=== PATIENT | female | born 1995 | race African-American/Black ===

== ENCOUNTER 2025-02-23 18:15 | Emergency (ER) | payer SELFPAY ==
[2025-02-23 18:25] VITALS: BP 148/90; PULSE 107; RESP 18; TEMP 36.4; O2SAT 100
--- NOTE | 2025-02-23 18:34 | ED.NECK ---
HPI - Neck Pain/Injury General Chief Complaint: Recheck/Abnormal Lab/Rx Stated Complaint: swollen tongue Time Seen by Provider: 02/23/25 18:25 History of Present Illness HPI Narrative: 29-year-old female presenting to the emergency room with chief complaint of swollen tonsils and some pain with swallowing. Intermittent symptoms for last few months and was previously treated with a course of amoxicillin several months ago. She states she was told to follow-up with an ENT doctor but mistakenly made the appointment for wrong date and has not been able to see them yet. Next appointment is March 26. She states for last 3 days she has been having worsening swallowing and scratchy sensations when swallowing associated with throat closing sensations but no difficulty in breathing or respiratory distress. Patient denies any trauma or injury, no fever, chills, muffled voice, pain with neck manipulation or movement. History of tonsillitis previously but no history of tonsil or adenoid surgery in the past. Related Data Allergies Allergy/AdvReac Type Severity Reaction Status Date / Time No Known Allergies Allergy Verified 02/23/25 18:29 Review of Systems Review of Systems: As reviewed above in HPI Exam Narrative: GENERAL: [Well-appearing, well-nourished, and in no acute distress.] HEAD: [Normocephalic, atraumatic.] EYES: [PERRLA and EOMI.] ENT: Bilateral tonsils are inflamed with the left side being slightly worse than the right but uvula is straight midline without any posterior or pharyngeal exudates or redness. Tonsils are widely spaced without any signs of airway compromise and she has good phonation without any signs of trismus or any secretion pooling. NECK: Supple. CHEST: [Clear to auscultation. No respiratory distress.] HEART: [Regular rate and rhythm]. No murmur heard. [Normal peripheral pulses.] ABDOMEN: [Soft, nondistended], [nontender], [No rigidity or guarding] EXTREMITIES: Normal range of motion. [No edema.] SKIN: Warm, dry, no rash. NEURO: [No focal deficits]. Alert and oriented [x3.] PSYCH: [Normal mood and affect.] Course Vital Signs Vital signs: Vital Signs Temperature 36.4 C 02/23/25 18:25 Pulse Rate 107 H 02/23/25 18:25 Respiratory Rate 18 02/23/25 18:25 Blood Pressure 148/90 H 02/23/25 18:25 Pulse Oximetry 100 02/23/25 18:25 Temperature 36.4 C 02/23/25 18:25 Pulse Rate 107 H 02/23/25 18:25 Respiratory Rate 18 02/23/25 18:25 Blood Pressure 148/90 H 02/23/25 18:25 Pulse Oximetry 100 02/23/25 18:25 MDM - Neck Pain/Injury MDM Narrative Medical decision making narrative: 29-year-old female presenting to the emergency department for tonsillitis type symptoms. Similar symptoms happened or several months ago and she completed a course of amoxicillin which did help her symptoms but they did recur. Not been able to follow-up with an adult ENT doctor yet for evaluation. Examination reveals bilateral tonsils are inflamed with the left side being slightly worse than the right but uvula is straight midline without any posterior or pharyngeal exudates or redness. Tonsils are widely spaced without any signs of airway compromise and she has good phonation without any signs of trismus or any secretion pooling. Patient is afebrile here, mildly tachycardic but not any acute physical or respiratory distress. IV was established and basic laboratory studies including CBC and CMP were obtained while she was given anti-inflammatory and steroid medications for tonsillitis and pharyngitis type symptoms. She was given IV Decadron and Toradol as well as a fluid bolus and started on clindamycin which will transition to oral upon discharge. Patient has a ENT appointment in 30 days but we will refer you to our local specialists if they can see her sooner. Patient was comfortable with this plan. Laboratory studies showed a slight leukocytosis of 12.9 likely secondary to her tonsillitis infection, hemoglobin 11.9 with no baseline to compare to. Normal platelet count. Electrolytes are unremarkable. Normal renal and hepatic function panel with normal glucose. Patient did require additional morphine for pain control which improved. Given her unremarkable workup she can be safely discharged home with oral clindamycin and follow-up with an early childhood education instructor. She will be sent home with prednisone for the next several days as well. Medical Records Attestation: I reviewed the patient's medical records. Lab Data Attestation: I reviewed the patient's lab results. 02/23/25 19:03 02/23/25 19:03 Labs: Lab Results 02/23/25 Range/Units 19:03 WBC 12.9 H (4.5-10.0) K/mm3 RBC 4.19 L (4.2-5.4) M/mm3 Hgb 11.9 L (12.0-15.0) g/dL Hct 36.6 L (37.0-47.0) % MCV 87.4 (80-100) fl MCH 28.4 (26-34) pg MCHC 32.5 (32-36) g/dl RDW 13.7 (11.5-14.5) % Plt Count 303 (150-375) k/mm3 MPV 9.9 (7.4-10.4) fl Immature Gran % (Auto) 0.5 (0-0.5) % Neut % (Auto) 70.9 (45.5-73.1) % Lymph % (Auto) 22.5 (18.3-44.2) % [place] % (Auto) 5.6 (2.6-8.5) % Eos % (Auto) 0.3 (0-4.4) % Baso % (Auto) 0.2 (0.2-1.2) % Lymph # (Auto) 2.91 (0.9-3.2) K/mm3 [place] # (Auto) 0.7 H (0.1-0.6) K/mm3 Eos # (Auto) 0.0 (0-0.3) K/mm3 Baso # (Auto) 0.0 (0.0-0.1) K/mm3 Abs Immat Gran (auto) 0.06 H (0.00-0.031) K/mm3 Absolute Neuts (auto) 9.2 H (1.3-6.7) K/mm3 Absolute Nucleated RBC 0.000 (0.0-0.012) K/mm3 Nucleated RBC % 0.0 (0.0-0.2) % Sodium 137 (137-145) mmol/L Potassium 3.6 (3.4-5.0) mmol/L Chloride 100 (98-107) mmol/L Carbon Dioxide 27 (22-30) mmol/L Anion Gap 10 (4-12) mmol/L BUN 13 (7-17) mg/dL Creatinine 0.82 (0.7-1.0) mg/dL Estim Creat Clear Calc 94 ml/min Estimated GFR > 60 (59 - ) Glucose 106 (65-110) mg/dL Calcium 9.7 (8.4-10.2) mg/dL Total Bilirubin 0.4 (0.2-1.3) mg/dL AST 29 (14-36) U/L ALT 14 (6-35) U/L Alkaline Phosphatase 100 (38-126) U/L Total Protein 9.4 H (6.3-8.2) g/dL Albumin 4.3 (3.5-5.1) g/dL Discharge Plan Discharge Clinical Impression: Acute bacterial tonsillitis Patient Disposition: Home Condition: Stable Instructions: Antibiotic Form, Tonsillitis (ED) Additional Instructions: Follow-up with the early childhood education instructor regarding her tonsillar inflammation and infection and we will treat with antibiotics and steroids in the meantime. Return with any emergent concerns. Patient Language: Portuguese Prescriptions: New clindamycin HCl [Cleocin HCl] 300 mg capsule 300 mg PO TID 10 Days Qty: 30 0RF ibuprofen 800 mg tablet 800 mg PO TID PRN (Reason: pain) Qty: 30 0RF methylprednisolone [Medrol (Nikolai)] 4 mg tablets,dose pack See Rx Instructions .ROUTE .COMPLEX Qty: 21 0RF Rx Instructions: orally per package directions Follow-up/Referrals: Dyllan Cope MD [Physician] - 1 Week (Tonsillitis) PHYSICIAN,CREDIT CHARGE AUTHORIZER [Primary Care Provider] - Time of Disposition: 19:57
[2025-02-23] MEDS: dexAMETHasone SOD PHOS INJ 10 MG/ML 1 ML VIAL IV PUSH (18:59)
[2025-02-23] MEDS: KETOROLAC 15 MG/ML VIAL (*BKC) IV PUSH (18:59)
[2025-02-23] MEDS: LACTATED RINGERS 1,000 ML 999 ML IV CONT (19:00)
[2025-02-23] MEDS: CLINDAMYCIN 600 MG/D5W 50 ML 600 MG/50 ML PIGGYBACK 100 MG IVPB (19:00)
[2025-02-23 19:09] LABS: Basophils Percent Auto 0.2 % (0.2-1.2); Eosinophils Percent Auto 0.3 % (0-4.4); Hematocrit 36.6 % (37.0-47.0); Hemoglobin 11.9 g/dL (12.0-15.0); Immature Granulocyte Absolute 0.06 K/mm3 (0.00-0.031); Immature Granulocyte Percent A 0.5 % (0-0.5); Lymphocytes Absolute Auto 2.91 K/mm3 (0.9-3.2); Lymphocytes Percent Auto 22.5 % (18.3-44.2); Mean Corpuscular HGB Conc 32.5 g/dl (32-36); Mean Corpuscular Hemoglobin 28.4 pg (26-34); Mean Corpuscular Volume 87.4 fl (80-100); Mean Platelet Volume 9.9 fl (7.4-10.4); Monocytes Absolute Auto 0.7 K/mm3 (0.1-0.6); Monocytes Percent Auto 5.6 % (2.6-8.5); Neutrophils Absolute Auto 9.2 K/mm3 (1.3-6.7); Neutrophils Percent Auto 70.9 % (45.5-73.1); Platelet Count Result 303 k/mm3 (150-375); Red Blood Count 4.19 M/mm3 (4.2-5.4); Red Cell Distribution Width 13.7 % (11.5-14.5); White Blood Count 12.9 K/mm3 (4.5-10.0)
--- NOTE | 2025-02-23 19:12 | PC.NURSE ---
Report received from CHACE Bardales. Assumed care of patient at this time.
[2025-02-23 19:31] VITALS: BP 127/79; O2SAT 100
[2025-02-23 19:32] LABS: Alanine Aminotransferase 14 U/L (6-35); Albumin Level 4.3 g/dL (3.5-5.1); Alkaline Phosphatase 100 U/L (38-126); Anion Gap 10 mmol/L (4-12); Aspartate Amino Transferase 29 U/L (14-36); Bilirubin,Total 0.4 mg/dL (0.2-1.3); Blood Urea Nitrogen 13 mg/dL (7-17); Calcium 9.7 mg/dL (8.4-10.2); Carbon Dioxide 27 mmol/L (22-30); Chloride 100 mmol/L (98-107); Estimated CRCL calculation 94 ml/min; Estimated Glomerular Filt Rate > 60; Glucose 106 mg/dL (65-110); Potassium 3.6 mmol/L (3.4-5.0); Sodium 137 mmol/L (137-145); Total Protein 9.4 g/dL (6.3-8.2)
[2025-02-23 20:01] VITALS: BP 138/92; O2SAT 100
[2025-02-23] MEDS: MORPHINE SULFATE (*CRX) 4 MG/ML INJ IV PUSH (20:07)
[2025-02-23 20:48] VITALS: BP 135/99; PULSE 80; RESP 16; TEMP 36.5; O2SAT 100
== END 2025-02-23 20:40 | disposition home or self-care (01) ==
PROVIDERS: Emergency Provider Student in an Organized Health Care Education/Training Program
DX: J03.80 Acute tonsillitis due to other specified organisms (principal); B96.89 Other specified bacterial agents as the cause of diseases classified elsewhere
CPT/HCPCS: 36415; 80053; 85025; 96365; 96375; 99284; J1100; J1885; J2270; J7120

== ENCOUNTER 2025-02-24 04:58 | Emergency (ER) | payer SELFPAY ==
[2025-02-24] VITALS (13 sets, daily range): BP systolic 116–155; BP diastolic 85–95; PULSE 58–127; RESP 16–22; TEMP 36.6–36.9; O2SAT 98–100
--- NOTE | ~2025-02-24 | CT_ITS ---
CT scan of the Neck Technique: 2.5 mm axial scans were obtained through the neck after intravenous administration of 75 c c Omnipaque 350. Coronal and sagittal reconstructions of the neck were obtained. Dose reduction techn ique was used on this scan by utilizing automated exposure control and iterative reconstruction techn ique. The dose-length product (DLP) was 476.18 mGy-cm. Clinical History: Tonsillar swelling Findings: There is no evidence of any significant cervical lymphadenopathy. Several small, nonenlarged jugulo- digastric and posterior cervical lymph nodes are noted bilaterally. Parapharyngeal spaces appear norm al bilaterally. The parotid and submandibular glands appear normal. Questionable minimal prominence o f the palatine tonsils bilaterally. The pharyngeal mucosal spaces appear normal. No soft tissue masses are seen in the neck. The thyroid gland appears normal. Images of the lung apices reveal no abnormalities. Impression: Questionable minimal prominence of the palatine tonsils. Correlate for tonsillitis. No phlegmonous ch [place] or abscess seen. No infiltration parapharyngeal fat. Reviewed, dictated and finalized at [facility]. Impression: Questionable minimal prominence of the palatine tonsils. Correlate for tonsilli tis. No phlegmonous change or abscess seen. No infiltration parapharyngeal fat.
--- NOTE | 2025-02-24 05:33 | ED_ITS ---
HPI - Dental/Oral General Chief complaint: Dental/Oral <Ayse Guevara MD - Last Filed: 02/24/25 07:32> Stated complaint: tonsil swelling <Ayse Guevara MD - Last Filed: 02/24/25 07:32> Time Seen by Provider: 02/24/25 05:03 <Ayse Guevara MD - Last Filed: 02/24/25 07:32> Source: patient <Ayse Guevara MD - Last Filed: 02/24/25 07:32> Mode of arrival: ambulatory <Ayse Guevara MD - Last Filed: 02/24/25 07:32> Limitations: no limitations <Ayse Guevara MD - Last Filed: 02/24/25 07:32> History of Present Illness HPI Narrative: Patient presents with report of painful posterior oropharynx/tonsils. She is experiencing odynophagia. No fevers or chills. Patient was seen in the emergency department yesterday for the same. She underwent laboratory studies and was given Decadron, Toradol, IV fluids, clindamycin, and a dose of morphine. Advised follow-up with marketing database consultant. Patient was discharged home but unable to fill prescriptions and the plan was to fill them this morning. No history of tonsillectomy. Patient states she is having difficulty swallowing and unable to sleep due to the pain. She tried Orajel, salt rinses, ibuprofen/[id number] pain medicine. <Ayse Guevara MD - Last Filed: 02/24/25 07:32> Related Data Allergies/adverse reactions: Allergies Allergy/AdvReac Type Severity Reaction Status Date / Time No Known Allergies Allergy Verified 02/23/25 18:29 <Ayse Guevara MD - Last Filed: 02/24/25 07:32> Exam Narrative: GENERAL: Well-appearing, well-nourished, and in no acute distress. HEAD: Normocephalic, atraumatic. EYES: Non injected, non icteric ENT: Nares clear, no rhinorrhea or epistaxis. Gross auditory acuity intact. NO TRISMUS. Tongue normal size. Uvula midline. Tonsillar hypertrophy but not kissing.Hyperemia of posterior oropharynx. NECK: Bilateral lymphadenopathy but Supple. No meningismus. CHEST: Speaking in full sentences. No respiratory distress. HEART: Tachycardic rate and rhythm. . ABDOMEN: Soft, nondistended. EXTREMITIES: Normal range of motion. No lower extremity edema. SKIN: Warm, dry, no rash. NEURO: No focal deficits. Alert and oriented. Answering questions. Following commands. Normal speech without aphasia or dysarthria. No dysphonia. PSYCH: Normal mood and affect. <Ayse Guevara MD - Last Filed: 02/24/25 07:32> Course Vital Signs Vital signs: Vital Signs Temperature 98.4 F 02/24/25 05:06 Pulse Rate 127 H 02/24/25 05:06 Respiratory Rate 16 02/24/25 05:06 Blood Pressure 130/85 02/24/25 05:06 Pulse Oximetry 99 02/24/25 05:06 Temperature 97.8 F 02/24/25 09:05 Pulse Rate 79 02/24/25 09:05 Respiratory Rate 16 02/24/25 09:05 Blood Pressure 132/87 02/24/25 09:05 Pulse Oximetry 100 02/24/25 09:05 <Ayse Guevara MD - Last Filed: 02/24/25 07:32> Vital Signs Temperature 98.4 F 02/24/25 05:06 Pulse Rate 127 H 02/24/25 05:06 Respiratory Rate 16 02/24/25 05:06 Blood Pressure 130/85 02/24/25 05:06 Pulse Oximetry 99 02/24/25 05:06 Temperature 97.8 F 02/24/25 09:05 Pulse Rate 79 02/24/25 09:05 Respiratory Rate 16 02/24/25 09:05 Blood Pressure 132/87 02/24/25 09:05 Pulse Oximetry 100 02/24/25 09:05 <Acosta Browning III, DO - Last Filed: 02/24/25 18:20> MDM - Dental/Oral MDM Narrative Medical decision making narrative: Patient presents with tonsillitis/pharyngitis symptoms associated with odynophasia. Seen in the ED for the same yesterday. Received IV fluids, clindamycin, Toradol, Decadron, and a dose of morphine (SEE BELOW NOTE). In the emergency department she is afebrile with vital signs notable for tachycardia. I did call CT scan to confirm that they can use the labs the patient had obt ained within the past 12 hours. Will add strep swab and viral swab. Ordered IV fluids for the tachycardia as well as analgesics medication and another dose of Toradol. Procedure Note: Ultrasound-guided peripheral venous catheter insertion An ultrasound-guided peripheral venous catheter is required in order to obtain vascular access in this patient. Alcohol prep pad is used to sterilize the area and an 18 gauge catheter was successfully inserted into the Right antecubital fossa under ultrasound visualization. The catheter flushes and draws back without difficulty or signs of extravasation. Catheter secured in place with Tegaderm. Strep negative. Viral swab negative. Patient to be signed out to oncoming ED attending pending rest of work up ( CT imaging). <Ayse Guevara MD - Last Filed: 02/24/25 07:32> Patient presents with tonsillitis/pharyngitis symptoms associated with odynophasia. Seen in the ED for the same yesterday. Received IV fluids, clindamycin, Toradol, Decadron, and a dose of morphine (SEE BELOW NOTE). In the emergency department she is afebrile with vital signs notable for tachycardia. I did call CT scan to confirm that they can use the labs the patient had obtained within the past 12 hours. Will add strep swab and viral swab. Ordered IV fluids for the tachycardia as well as analgesics medication and another dose of Toradol. Procedure Note: Ultrasound-guided peripheral venous catheter insertion An ultrasound-guided peripheral venous catheter is required in order to obtain vascular access in this patient. Alcohol prep pad is used to sterilize the area and an 18 gauge catheter was successfully inserted into the Right antecubital fossa under ultrasound visualization. The catheter flushes and draws back without difficulty or signs of extravasation. Catheter secured in place with Tegaderm. Strep negative. Viral swab negative. Patient to be signed out to oncoming ED attending pending rest of work up ( CT imaging). Assumed care at 0700, ct unremarkable. gave toradol for pain. will send home on hydrocodone in addition to already prescribed meds. <Acosta Browning III, - Last Filed: 02/24/25 18:20> Differential Diagnosis Differential diagnosis: Likely other (Strep pharyngitis/tonsillitis, acute viral syndrome, SERVICE CAR DRIVER, RPA) <Ayse Guevara MD - Last Filed: 02/24/25 07:32> Medical Records Attestation: I reviewed the patient's medical records. <Ayse Guevara MD - Last Filed: 02/24/25 07:32> Medical records narrative: ED note from 02/23/25 reviewed: 29-year-old female presenting to the emergency department for tonsillitis type symptoms. Similar symptoms happened or several months ago and she completed a course of amoxicillin which did help her symptoms but they did recur. Not been able to follow-up with an adult ENT doctor yet for evaluation. Examination reveals bilateral tonsils are inflamed with the left side being slightly worse than the right but uvula is straight midline without any posterior or pharyngeal exudates or redness. Tonsils are widely spaced without any signs of airway compromise and she has good phonation without any signs of trismus or any secretion pooling. Patient is afebrile here, mildly tachycardic but not any acute physical or respiratory distress. IV was established and basic laboratory studies including CBC and CMP were obtained while she was given anti-inflammatory and steroid medications for tonsillitis and pharyngitis type symptoms. She was given IV Decadron and Toradol as well as a fluid bolus and started on clindamycin which will transition to oral upon discharge. Patient has a ENT appointment in 30 days but we will refer you to our local specialists if they can see her sooner. Patient was comfortable with this plan. Laboratory studies showed a slight leukocytosis of 12.9 likely secondary to her tonsillitis infection, hemoglobin 11.9 with no baseline to compare to. Normal platelet count. Electrolytes are unremarkable. Normal renal and hepatic function panel with normal glucose. Patient did require additional morphine for pain control which improved. Given her unremarkable workup she can be safely discharged home with oral clindamycin and follow-up with an director of learning. She will be sent home with prednisone for the next several days as well. <Ayse Guevara MD - Last Filed: 02/24/25 07:32> Lab Data Attestation: I reviewed the patient's lab results. <Ayse Guevara MD - Last Filed: 02/24/25 07:32> Labs: Lab Results 02/24/25 Range/Units 06:26 Influenza A (RT-PCR) Negative (Negative) Influenza B (RT-PCR) Negative (Negative) RSV (RT-PCR) Negative (Negative) SARS-CoV-2 RNA (RT-PCR) Negative (Negative) Group A Strep (PCR) Not detected (Negative) <Ayse Guevara MD - Last Filed: 02/24/25 07:32> Lab Results 02/24/25 Range/Units 06:26 Influenza A (RT-PCR) Negative (Negative) Influenza B (RT-PCR) Negative (Negative) RSV (RT-PCR) Negative (Negative) SARS-CoV-2 RNA (RT-PCR) Negative (Negative) Group A Strep (PCR) Not detected (Negative) <Acosta Browning III, DO - Last Filed: 02/24/25 18:20> Discharge Plan Discharge Clinical Impression: Hypertrophy of tonsils <Ayse Guevara MD - Last Filed: 02/24/25 07:32> Patient Disposition: Home <Ayse Guevara MD - Last Filed: 02/24/25 07:32> Condition: Stable <Ayse Guevara MD - Last Filed: 02/24/25 07:32> Instructions: Antibiotic Form, Pharyngitis (ED) <Ayse Guevaar MD - Last Filed: 02/24/25 07:32> Patient Language: Tajik <Ayse Guevara MD - Last Filed: 02/24/25 07:32> Prescriptions: New hydrocodone-acetaminophen 5-325 mg tablet 1 tablet PO Q6H PRN (Reason: pain) Qty: 10 0RF No Action clindamycin HCl [Cleocin HCl] 300 mg capsule 300 mg PO TID 10 Days Qty: 30 0RF ibuprofen 800 mg tablet 800 mg PO TID PRN (Reason: pain) Qty: 30 0RF methylprednisolone [Medrol (Nikolai)] 4 mg tablets,dose pack See Rx Instructions .ROUTE .COMPLEX Qty: 21 0RF Rx Instructions: orally per package directions <Ayse Guevara MD - Last Filed: 02/24/25 07:32> Follow-up/Referrals: PHYSICIAN,MOWER SHARPENER [Primary Care Provider] - <Ayse Guevara MD - Last Filed: 02/24/25 07:32> Stand Alone Forms: Work/School Release IP <Ayse Guevara MD - Last Filed: 02/24/25 07:32>
[2025-02-24] MEDS: HYDROmorphone HCL INJ (*CRX) 2 MG/ML VIAL 0.5 MG IV PUSH (06:19)
[2025-02-24] MEDS: SODIUM CHLORIDE 0.9% IV 1,000 ML 999 ML IV CONT (06:20)
[2025-02-24] MEDS: dexAMETHasone SOD PHOS INJ 10 MG/ML 1 ML VIAL IV PUSH (06:20)
[2025-02-24 07:05] LABS: Strep Group A RT-PCR NOT DETECTED (Negative)
[2025-02-24 07:17] LABS: Influenza A QL RT-PCR Negative (Negative); Influenza B QL RT-PCR Negative (Negative); RSV RNA, RT-PCR. Negative (Negative); SARS-CoV-2 RNA PCR Negative (Negative)
[2025-02-24] MEDS: KETOROLAC 15 MG/ML VIAL (*BKC) IV PUSH (08:33)
== END 2025-02-24 09:10 | disposition home or self-care (01) ==
PROVIDERS: Student in an Organized Health Care Education/Training Program; Emergency Provider Emergency Medicine
DX: J35.1 Hypertrophy of tonsils (principal); Z20.822 Contact with and (suspected) exposure to COVID-19
CPT/HCPCS: 70491; 87637; 87651; 96361; 96374; 96375; 99284; J1100; J1171; J1885; J7030; Q9967